=== PATIENT | female | born 1935 | race Caucasian/White ===

== ENCOUNTER → 2017-08-31 | Outpatient (CLI) | payer OTHER ==
[~2017-08-31] VITALS: Ht 160 cm; Wt 78.2 kg
[2017-08-31] VITALS (7 sets, daily range): BP systolic 98–120; BP diastolic 51–60
[~2017-08-31] MED LIST: ACID CONTROL150 MG PO; ASPIRIN EC325 MG PO; CALTRATE PLUS1 EACH PO; CYANOCOBALAM1000 MCG PO; FLUOXETINE HCL10 MG PO; JAKAFI10 MG PO; LYRICA150 MG PO; LYRICA25 MG PO; LYRICA75 MG PO; MULTI-VITAMIN1 EAC3 PO; OXYCODONE-ASPI1 EACH PO; PROBIOTIC1 EAC1 PO; ROXIFOL-D TA500 UNIT PO; VITAMIN B-6100 MG PO; VITAMIN B-6250 MG PO; VITAMIN D1000 UNIT PO; ZYLOPRIM100 MG PO
== END | disposition home or self-care (01) ==
LOC: IVINF 10:29
DX: D64.9 Anemia, unspecified (principal); D75.81 Myelofibrosis
CPT/HCPCS: 36430; 86999